=== PATIENT | female | born 1945 | race Caucasian/White ===

== ENCOUNTER 2018-10-20 19:37 | Inpatient (IN) | payer MEDICARE, MEDICAID ==
[~2018-10-20] VITALS: Ht 142.2 cm; Wt 62.7 kg
[2018-10-20 20:32] LABS: BASO # 0.1 (0.0-0.2); BASO % 0.3 % (0.0-2.0); EOS # 0.2 (0.0-0.7); EOS % 0.9 % (0-4.0); GRAN # 14.1 (1.4-6.5); GRAN % 79.8 % (42.2-75.2); HEMATOCRIT 41.3 % (37.0-47.0); HEMOGLOBIN 13.8 g/dl (12.5-16.0); LYMPH # 2.2 (1.2-3.4); LYMPH % 12.4 % (20.0-51.0); MEAN CELL VOLUME 87 fl (80.0-100.0); MEAN CORPUSCULAR HEMOGLOBIN 29 pg (27.0-31.0); MEAN CORPUSCULAR HGB CONC 33 g/dl (33.0-37.0); MEAN PLATELET VOLUME 9.4 fl (7.4-10.4); MONO # 1.1 (0.1-0.6); MONO % 6.3 % (1.7-9.3); PLATELET COUNT 292 K/mm3 (130-400); RED BLOOD COUNT 4.75 M/mm3 (4.10-5.30)
[2018-10-20 21:15] LABS: ALBUMIN 4.3 gm/dL (3.5-5.0); BILIRUBIN,TOTAL 0.5 mg/dL (0.0-1.0); CALCIUM 9.7 mg/dL (8.4-10.2); CREATININE, serum 0.99 mg/dL (0.52-1.25); POTASSIUM 3.8 mmol/L (3.4-5.0)
[2018-10-20 21:18] LABS: C-REACTIVE PROTEIN 0.5 mg/dL (0.0-0.9)
--- NOTE | 2018-10-20 23:11 | NUR ---
Pt arrived to floor via wheelchair. Assessment completed- rating pain 2-3 in abdomen. No reports of nausea/vomiting. Lungs clear, bowel sounds active, pulses +3, no edema. IV site to right hand has LR infusing. Grandson at bedside, no further needs at this time.
[2018-10-20 23:21] VITALS: BP 138/80; PULSE 84; TEMP 98.4
[2018-10-20] MEDS ORDERED: FOSAMAX 70MG TA70 MG PO (23:55)
[2018-10-20] MEDS ORDERED: IMDUR 60MG60 MG/TAB PO (23:56)
[2018-10-20] MEDS ORDERED: SYNTHROID0.088 MG/T PO (23:56)
[2018-10-20] MEDS ORDERED: ZETIA 10MG TAB10 MG PO (23:57)
[2018-10-20] MEDS ORDERED: CYMBALTA 30MG30 MG PO (23:58)
[2018-10-20] MEDS ORDERED: ALTACE 5MG5 MG PO (23:59)
[2018-10-20] MEDS ORDERED: CYMBALTA 60MG60 MG PO (23:59)
[2018-10-21] MEDS ORDERED: PRIL40 PO
[2018-10-21] MEDS ORDERED: DULCOLAX STOOL100 MG PO (00:01)
[2018-10-21] MEDS ORDERED: ZOFRAN 4MG T4 MG/TAB PO (00:01)
[2018-10-21] MEDS ORDERED: VITAMIN D31000 I1 PO ×2 (00:03→00:04)
[2018-10-21] MEDS ORDERED: SINGULAIR 110 MG/TAB PO (00:05)
[2018-10-21] MEDS ORDERED: ZOCOR 40MG40 MG PO (00:06)
[2018-10-21] MEDS ORDERED: VESICARE10 MG PO (00:07)
[2018-10-21] MEDS ORDERED: SENOKOT8.6 MG PO (00:12)
[2018-10-21] MEDS ORDERED: ASPIRIN E.C. 8181 MG PO (00:13)
[2018-10-21] MEDS ORDERED: ULTRAM 50MG TAB50 MG PO (00:14)
[2018-10-21] MEDS ORDERED: ZANAFLEX 4MG TAB4 MG PO (00:17)
[2018-10-21] MEDS ORDERED: FLOVENT DI50 MCG/Act IH (00:18)
[2018-10-21 01:08] LABS: COLLECTION METHOD CLEAN CATCH
[2018-10-21 01:16] LABS: MUCOUS Present /lpf; PH 6 (5-8); SQUAMOUS EPITHELIAL None Seen /hpf; URINE APPEARANCE Clear; URINE BACTERIA Many /hpf; URINE BILIRUBIN Negative (NEGATIVE); URINE BLOOD 3+ (NEGATIVE); URINE COLOR Yellow; URINE GLUCOSE Negative (NEGATIVE); URINE KETONE Negative (NEGATIVE); URINE LEUKOCYTE ESTERASE 1+ (NEGATIVE); URINE NITRATE Positive (NEGATIVE); URINE PROTEIN(semi-quant) Negative (NEGATIVE); URINE RBC 20-50 /hpf; URINE UROBILINOGEN Negative (NEGATIVE)
[2018-10-21 04:43] VITALS: BP 126/51; PULSE 91; TEMP 98.8
--- NOTE | 2018-10-21 05:28 | NUR ---
Pt slept on/off last night. Mild pain reported, no pain medications administered since patient has come up to the floor. No reports of nausea. IVF infusing into right hand. No further needs athis time
[2018-10-21 07:10] VITALS: BP 131/51; PULSE 89; TEMP 98.9
--- NOTE | 2018-10-21 07:17 | NUR ---
Report given to KYA Morelos. Patient asleep at this time.
[2018-10-21 09:57] LABS: ALBUMIN 3.2 gm/dL (3.5-5.0); BILIRUBIN,TOTAL 0.2 mg/dL (0.0-1.0); CALCIUM 8.4 mg/dL (8.4-10.2); CREATININE, serum 0.85 mg/dL (0.52-1.25); POTASSIUM 4.1 mmol/L (3.4-5.0); TOTAL PROTEIN 6.1 gm/dL (6.4-8.2)
[2018-10-21 10:01] LABS: HEMOGLOBIN 11.9 g/dl (12.5-16.0); MEAN CELL VOLUME 88 fl (80.0-100.0); MEAN CORPUSCULAR HEMOGLOBIN 29 pg (27.0-31.0); MEAN CORPUSCULAR HGB CONC 33 g/dl (33.0-37.0); MEAN PLATELET VOLUME 9.6 fl (7.4-10.4); PLATELET COUNT 276 K/mm3 (130-400); RED BLOOD COUNT 4.16 M/mm3 (4.10-5.30); REDCELL DISTRIBUTION WIDTH-CV 13.2 % (11.5-14.5)
[2018-10-21 10:06] LABS: HEMATOCRIT 36.5 % (37.0-47.0)
[2018-10-21 10:33] LABS: BAND 1 % (0-10); EOSINOPHIL 2 % (0-4); LYMPHOCYTE 22 % (20.0-51.0); NEUTROPHILS 70 % (42.0-75.2); PLATELET ESTIMATE NORMAL (NORMAL)
[2018-10-21 10:51] VITALS: BP 153/49; PULSE 85; TEMP 98.6
--- NOTE | 2018-10-21 11:37 | NUR ---
MARLEE and MARLEE student met with the patient and patient's grandson, Chay, to discuss discharge plan. The patient just moved to [place], [place] with her , Fernandez. She was in [place] visiting her grandson and great-granddaughter. She reports independence with ADLs and has a walker. The patient's PCP is Dr. Mingo Souza in [place] and she plans to receive her medications at the [facility] upon discharge. The patient's grandson reports that the patient has occasional difficulties affording her meds. SW discussed prescription assistance options. The patient does not have advanced directives, but she was interested in completing DPOA-HC. The patient designated her (Fernandez) and grandson (Chay). SW and MARLEE white witnessed the patient sign. The patient was provided with the original and some copies. A copy was placed in the patient's chart. The patient plans to return back to her grandson's home upon discharge. No additional needs at this time.
[2018-10-21 16:43] VITALS: BP 135/55; PULSE 75; TEMP 98.1
--- NOTE | 2018-10-21 18:51 | NUR ---
Bedside report given to Mary BOLAND
--- NOTE | 2018-10-21 19:20 | NUR ---
Patient walking the halls, returned to room for assessment. Was able to tolerate mechanical soft diet for dinner. No nausea/vomiting- requested more chocolate ice cream. Denies pain. Assessment completed- lung sounds clear, abomdinal sounds active all quadrants, pulses +3. LR infusing at 75 mls/hr into right hand. No further needs at this time.
[2018-10-21 20:32] VITALS: BP 118/57; PULSE 82; TEMP 98.5
[2018-10-22 00:42] VITALS: BP 117/73; BP 165/70; PULSE 62; PULSE 86; TEMP 97.6; TEMP 97.7
[2018-10-22 05:05] VITALS: BP 149/78; PULSE 85; TEMP 97.6
--- NOTE | 2018-10-22 05:12 | NUR ---
Pt slept most of the night. Tolerated dinner well, no nausea/vomiting. Able to ambulate the halls last night before bed. No further needs at this time.
--- NOTE | 2018-10-22 06:48 | NUR ---
Report given to KYA Askew. Patient awake, has no needs at this time.
[2018-10-22 07:32] VITALS: BP 145/61; PULSE 79; TEMP 98
--- NOTE | 2018-10-22 09:00 | NUR ---
pt is A+Ox3, pleasant, denies pain and SOB, denies nausea and abdominal pain. She is independent in room. Discussed hydration habits at home, fiber and fluid intake, and toileting schedule as pt shared she's afraid to drink because when she has to pee she's often incontinent. Call light in reach, no furtehr needs
[2018-10-22 11:10] VITALS: BP 144/69; PULSE 79; TEMP 97.6
--- NOTE | 2018-10-22 11:32 | NUR ---
First visit from the batcher operator. No needs right now.
--- NOTE | 2018-10-22 14:00 | NUR ---
This Rn reviewed discharge instructions with pt and family, answered all quwstions, IV removed with tip itnact, site free of complciations, no furtehr needs
== END 2018-10-22 17:04 | disposition home or self-care (01) | DRG 390 ==
LOC: COL.ER 19:37 → MEDICAL 22:32
PROVIDERS: Family Medicine; ADMIT Surgery
DX: K56.600 Partial intestinal obstruction, unspecified as to cause (principal); I25.10 Atherosclerotic heart disease of native coronary artery without angina pectoris; Z95.5 Presence of coronary angioplasty implant and graft; Z88.0 Allergy status to penicillin; E78.5 Hyperlipidemia, unspecified
CPT/HCPCS: A9284; C9113; J1170; J2405; J2550; J7030; J7120; Q9967